=== PATIENT | male | born 1990 | race African-American/Black ===

== ENCOUNTER 2019-01-14 11:38 | Observation (INO) | payer OTHER ==
[~2019-01-14] VITALS: Ht 170.2 cm; Wt 71.0 kg
[2019-01-14 12:50] VITALS: BP 98/60; TEMP 97.9; Ht 170.2 cm; Wt 71.0 kg
[2019-01-14 13:07] LABS: PLATELET COUNT 279 K/uL (142-355)
[2019-01-14 13:13] LABS: POTASSIUM 3.2 mmol/L (3.6-5.2)
[2019-01-14 16:00] VITALS: BP 105/65; TEMP 97.5
[2019-01-14 20:00] VITALS: BP 102/65; TEMP 97.7
[2019-01-15 00:14] VITALS: BP 92/55; TEMP 97.8
[2019-01-15 01:14] LABS: PLATELET COUNT 226 K/uL (142-355)
[2019-01-15 01:39] LABS: POTASSIUM 3.6 mmol/L (3.6-5.2); SODIUM 143 mmol/L (136-145)
[2019-01-15 04:00] VITALS: BP 95/66; TEMP 98.1
[2019-01-15 08:00] VITALS: BP 134/80; TEMP 97.9
== END 2019-01-15 10:10 | disposition home or self-care (01) ==
LOC: MED/SURG 11:38
PROVIDERS: ADMIT Family Medicine
DX: R07.89 Other chest pain (principal); R11.2 Nausea with vomiting, unspecified; R10.13 Epigastric pain; E86.0 Dehydration
CPT/HCPCS: 36415; 80053; 81000; 82150; 82550; 83690; 84484; 85027; 93005; 99220; G0378; G0379; J1885; J2550; J3490